=== PATIENT | female | born 1995 | race Caucasian/White ===

== ENCOUNTER 2020-11-16 13:32 | Emergency (ER) | payer OTHER, SELFPAY ==
[2020-11-16 13:34] VITALS: BP 153/99; PULSE 101; RESP 16; TEMP 36.9; O2SAT 98; BMI 64.7
--- NOTE | 2020-11-16 14:15 | CT_ITS ---
STUDY: CT ABDOMEN AND PELVIS WITHOUT CONTRAST REASON FOR EXAM: Female, 25 years old. Right flank pain. RADIATION DOSAGE (If Supplied By Facility): CTDIvol = ( 22.71 ) mGy, DLP = ( 1096.05 ) mGycm TECHNIQUE: Transaxial images were obtained from the dome of the diaphragm to the symphysis pubis without oral contrast, and without intravenous contrast. Sagittal and coronal images were reconstructed. Individualized dose optimization techniques were used for this CT. COMPARISON: None. FINDINGS: The visualized lung bases are unremarkable. The visualized portions of the heart are within normal limits. Normal liver. Normal gallbladder and extrahepatic biliary system. Normal spleen. Normal pancreas. Normal bilateral adrenal glands. Nonobstructive right intrarenal calculi. The largest measuring 3 mm. Small nonobstructive left intrarenal calculi the largest measuring approximately 4.5 mm. Normal visualized stomach. Normal small intestine. Normal colon. The appendix is visualized and appears normal. Normal abdominal aorta. Normal inferior vena cava. Normal retroperitoneum. Normal urinary bladder. Questionable 3.5 cm x 4.5 cm left ovarian cyst. Normal abdominal wall. Normal osseous structures. CT/Abdomen/Pelvis without Cont IMPRESSION: Bilateral intrarenal calculi. No obstructive uropathy is seen at this time. Questionable 3.5 cm x 4.5 cm left ovarian cyst. Electronically Signed: Sae Forrest MD at 15:34 EDT , Service support ,
--- NOTE | 2020-11-16 14:16 | EDS_ITS ---
HPI History of Present Illness Chief Complaint: Flank Pain Informant: patient Onset/Context/Timing Onset: Days (4 to 5 days) Context: Gradual Onset Timing: Waxes and wanes Current Severity: Moderate Maximum Severity: Severe Narrative Narrative: Patient presents with right flank pain for the last for 5 days. She states pain feels similar to prior kidney stone. [facility]. She had urinalysis done that showed small leukocytes. No blood noted. She was sent to the ER to rule out appendicitis. Patient denies fever or chills. She is been able to tolerate p.o. diet without difficulty and without change in her pain. [facility] Medical History Kidney stone Home Medications hydrocodone-acetaminophen 1 tab PO Q6H PRN 3 Days #10 tab 11/16/20 [Rx Last Taken Unknown] levonorgestrel-ethinyl estrad [Lutera (28)] 1 tab PO DAILY 11/16/20 [History Last Taken Unknown] Allergy/AdvReac Type Severity Reaction Status Date / Time amoxicillin Allergy Hives Verified 11/16/20 13:33 Social History Smoking Status: Never smoker ROS ROS ED Constitutional Constitutional ED: Denies chills or fever(s) Eyes Eyes: Denies change in vision ENT ENT ED: Denies sore throat Cardiovascular Cardiovascular: Denies chest pain Respiratory/Chest Respiratory/Chest: Denies cough or dyspnea Gastrointestinal Gastrointestinal: Reports abdominal pain; Denies diarrhea, nausea or vomiting Genitourinary Genitourinary ED: Reports dysuria and LMP (females 10-50) Details: Comment: (1 month ago); Denies hematuria Musculoskeletal Musculoskeletal: Denies back pain Integumentary Denies rash Neurologic Neurologic: Denies headache(s) or weakness Psychiatric Psychiatric: Denies anxiety or depression Endocrine Endocrinology: Denies polydipsia or polyuria Allergic/Immunologic Allergic/Immunologic ED: Denies urticaria EXAM Physical Exam Const Vital Signs: 11/16/20 13:34 Temperature 98.4 F Temperature Source Temporal Pulse Rate 101 H Respiratory Rate 16 Blood Pressure 153/99 H Blood Pressure Mean 117 Pulse Ox 98 Oxygen Delivery Method Room Air Positive well nourished and well developed General Appearance ED: well developed HEENT Reports normocephalic and head/scalp atraumatic Eyes PERRL and EOMs intact bilaterally Neck supple Chest Wall inspection of chest normal and palpation of chest normal Resp normal respiratory effort and clear to auscultation bilaterally Cardio regular rate and regular rhythm GI Auscultation: hypoactive bowel sounds Palpation: soft and tender RLQ; Negative for guarding or rebound tenderness present Extremity normal to inspection Neuro oriented x3 and no sensory deficits noted Sensorium / Orientation: alert Motor Exam: strength 5/5 throughout Psych mental status grossly normal Skin no rashes or lesions noted MDM MDM MDM Narrative Medical decision making narrative: Patient was given morphine and Zofran for pain. Lab work and CT were obtained. I did review her urinalysis from the urgent care. Lab Data Attestation: I reviewed the patient's lab results. Labs: Laboratory Results - last 24 hr 11/16/20 11/16/20 11/16/20 14:50 14:50 14:50 WBC 8.7 RBC 4.68 Hgb 12.7 Hct 40.9 MCV 87.4 MCH 27.1 MCHC 31.1 L RDW Std Deviation 42.5 RDW Coeff of Gaye 13.2 Plt Count 315 MPV 10.7 Immature Gran % (Auto) 0.200 Neut % (Auto) 69.7 Lymph % (Auto) 21.4 [place] % (Auto) 6.9 Eos % (Auto) 1.5 Baso % (Auto) 0.3 Absolute Neuts (auto) 6.0 Absolute Lymphs (auto) 1.86 Nucleated RBC % 0 Sodium 138 Potassium 4.0 Chloride 107 Carbon Dioxide 29.0 Anion Gap 2 L BUN 9 Creatinine 0.76 Estim Creat Clear Calc 90.28 Est GFR (MDRD) Af Amer 119 Est GFR (MDRD) Non-Af 99 BUN/Creatinine Ratio 11.8 Glucose 84 Calcium 8.9 Serum , Qual NEGATIVE Radiography Diagnostic Testing: Radiology Impression Abdomen/Pelvis CT 11/16/20 14:15 IMPRESSION: Bilateral intrarenal calculi. No obstructive uropathy is seen at this time. Questionable 3.5 cm x 4.5 cm left ovarian cyst. Electronically Signed: Sae Forrest MD at 15:34 EDT , Service support , Treatment and Re-Evaluation Comments:: On repeat evaluation patient is resting comfortably. Test results discussed with her. I did advise her at this time I do not have a definitive cause for her pain, but cannot rule out radiopaque kidney stone, right ovarian cyst, and appendicitis. Patient be given a short course of Malone for pain. She is given return instructions. Discharge Plan Triage Chief Complaint: Flank Pain ED Provider: Abby Cruz Dx/Rx/DC Orders Clinical Impression: Acute right flank pain Instructions: ED Flank Pain, Uncertain Cause Prescriptions: New hydrocodone-acetaminophen 5-325 mg tablet 1 tab PO Q6H PRN (Reason: pain) 3 Days Qty: 10 RF: 0 No Action levonorgestrel-ethinyl estrad [Lutera (28)] 0.1-20 mg-mcg Tablet 1 tab PO DAILY RF: 0 Primary Care Provider: Juan Workman Referrals: Juan Workman, DO [Primary Care Provider] - 3-5 Days if not improving Disposition Disposition: Home, self care
[2020-11-16] MEDS: Morphine 4 MG/ML Syringe IV (14:45)
[2020-11-16] MEDS: Ondansetron 4 MG/2 ML Vial IV (14:45)
[2020-11-16] MEDS: 0.9% Normal Saline 1,000 ML 125 ML IV (14:52)
[2020-11-16 15:01] LABS: Absolute Lymphocyte Count 1.86 X10^3/uL (0.83-4.51); Basophil# 0.03 X10^3/uL; Basophil% 0.3 % (0-1); Eosinophil# 0.13 X10^3/uL; Eosinophils% 1.5 % (0-5); Hematocrit 40.9 % (37-47); Hemoglobin 12.7 g/dL (12.0-15.0); Lymphocyte # 1.86 X10^3/ul (0.83-4.51); Lymphocyte % 21.4 % (19-41); Mean Corp Hgb Conc 31.1 g/dL (32-36); Mean Corpuscular Hgb 27.1 pg (27.0-32.0); Mean Corpuscular Volume 87.4 fL (81-99); Mean Platelet Vol. 10.7 fl (6.2-12.0); Monocyte% 6.9 % (0-10); NRBC Flagged by Analyzer 0 % (0-5); Neutrophil # 6.04 X10^3/uL (2.7-7.7); Neutrophil % 69.7 % (47-70); Platelet Count 315 K/mm3 (150-450); RBC Distribution Width CV 13.2 % (11.6-14.6); RBC Distribution Width SD 42.5 fl (35.1-43.9); Red Blood Count 4.68 M/mm3 (4.2-5.4); White Blood Count 8.7 K/mm3 (4.4-11.0)
[2020-11-16 15:04] LABS: Internal QC Validated? YES +Cl - CLEAR BKGD; Pregnancy, Serum, hCG Quali. NEGATIVE Negative
[2020-11-16 15:10] LABS: Anion Gap 2 (5-15); BUN 9 mg/dL (7-18); BUN/Creat Ratio 11.8 RATIO (10-20); Calcium,Total 8.9 mg/dL (8.5-10.1); Chloride 107 mmol/L (98-107); Creatinine, Serum 0.76 mg/dL (0.55-1.02); EST Glomerular Filtration Rate 99 mL/min (>60); Est Glom Filt Rate - Afr Amer 119 mL/min (>60); Estimated Creatinine Clearance 90.28 ml/min; Glucose 84 mg/dL (74-106); Sodium Level 138 mmol/L (136-145)
[2020-11-16 16:00] VITALS: BP 133/89; PULSE 88; RESP 16; O2SAT 99
[2020-11-16] MEDS: Ketorolac 30 MG/ML Syringe IV (16:04)
[2020-11-16 16:19] VITALS: BP 133/89; PULSE 88; RESP 16; O2SAT 98
== END 2020-11-16 16:20 | disposition home or self-care (01) ==
PROVIDERS: Emergency Provider Emergency Medicine; PCP Family Medicine
DX: R10.9 Unspecified abdominal pain (principal); Z87.442 Personal history of urinary calculi; Z79.3 Long term (current) use of hormonal contraceptives
CPT/HCPCS: 74176; 80048; 84703; 85025; 96374; 96375; 99284; J7030; J2405